=== PATIENT | male | born 1990 | race Caucasian/White ===

== ENCOUNTER 2017-04-13 16:54 | Emergency (ER) | payer OTHER ==
[~2017-04-13 16:54] MED LIST: QUET25TA73 PO; RISP2TAB21 PO
[2017-04-13] MEDS ORDERED: Haloperidol 5 mg/mL Inj ONE ×2 (17:12→17:14)
--- NOTE | 2017-04-13 17:20 | ED.REPORT ---
HPI-General Illness Date of Service Apr 13, 2017 ED Provider: Kayla Toledo MD The pt is a 27 y/o male w/ a hx of psychiatric hospitalizations and polysubstance abuse presenting to the ED via police due to dangerous behavior. They report him threatening his roommate w/ a saw, jumping on cars, and yelling that he was Sukumar. The pt also admits taking his psych meds w/ marijuana. Police also report the pt yelling about taking meth. Nursing Notes Stated Complaint: MENTAL HEALTH EVALUATION Chief Complaint: Mental Health Evaluation Nursing Notes Reviewed: Yes Allergies: Coded Allergies: doxylamine succinate (Verified Allergy, Mild, Hives, 02/01/16) Scheduled Quetiapine Fumarate (Quetiapine Fumarate) 25 Mg Tablet 100 MG PO HS Risperidone (Risperdal) 2 Mg Tablet 2 MG PO HS General Time Seen by MD: 17:11 Chief Complaint Altered mental status Hx Obtained From: Police Unable to Obtain Hx: Mental status Arrived By: Police Sudden in Onset?: Yes Onset Occurred: Just prior to arrival Context of Onset: Medication reaction Symptom Duration: Since onset Recent Healthcare: Recent doctor visit, Recent hospitalization Similar Sx Previous: Yes Past Medical History Past Medical History Depression Psychosis PAST PSYCHIATRIC HISTORY: He has multiple psychiatric hospitalizations, including on April 16, 2012; April 07, 2012; June 08, 2011; February 15, 2013, for similar presentations of suicidality, depression, and psychosis. He has been followed by Dr. Ray Bonilla in [place]. SUBSTANCE ABUSE HISTORY: He has extensive polysubstance abuse. He has abused benzodiazepines. He has sniffed volatile substances such as glue, paint thinner, and gaseous substances. He has not had significant problems with alcohol, stimulants, or opioids. He has been smoking cannabis consistently. He has been in drug rehab in the past, and he lived at the [facility] in January 2013. Currently at [facility]. Past Surgical History Denies Family History Mother has had depression and anxiety, and reportedly has made suicide attempts in the past. Smoking History Current Every Day Smoker Social History Alcohol Use: Denies alcohol use Drug Use: Meth, THC Other Social History: Poor social support, Local resident Ambulatory Status Independent Review of Systems Unable to Obtain ROS Mental status Physical Exam General: Diaphoretic, agitated young male, laying on ground. HEENT: mucous membranes moist Pulm: Speaking comfortably with unlabored respirations, no respiratory distress Card: Tachycardic, regular rate, good peripheral perfusion Abd: Soft, nontender, nondistended Skin: Warm and moist, no rashes or pallor appreciated Neuro: AOx3, normal muscle tone. Extremities: Moving all extremities, no peripheral edema appreciated Psychiatric: Agitated, yelling. Not expressing suicidal or homicidal ideations however does appear to be acutely psychotics. Rapid pressured speech. Vital Signs Vital Signs Date Time Temp Pulse Resp B/P Pulse Ox O2 Delivery O2 Flow Rate FiO2 04/13/17 17:52 37.2 119 18 106/52 98 Room Air Initial VS: Reviewed Interpretation & Diagnostics Lab Results Interpretation Result Diagram: 04/13/17 1805 04/13/17 1805 Test 04/13/17 18:05 04/13/17 21:45 White Blood Count 6.7th/mm3 (3.8-10.1) Red Blood Count 5.05mil/mm3 (4.40-5.80) Hemoglobin 15.4g/dL (13.8-17.2) Hematocrit 42.7% (41.0-50.0) Mean Corpuscular Volume 84.6fL (81-100) Mean Corpuscular Hemoglobin 30.5pg (27.0-35.0) Mean Corpuscular Hemoglobin Concent 36.1% (32.0-37.0) Red Cell Distribution Width 12.7% (12.3-15.4) Platelet Count 290bil/L (150-400) Neutrophils (%) (Auto) 69.3% (40-74) Lymphocytes (%) (Auto) 15.2% (14-46) Monocytes (%) (Auto) 14.6% (4-12) Eosinophils (%) (Auto) 0.7% (0-5) Basophils (%) (Auto) 0.1% (0-3) Sodium Level 136mEq/L (134-144) Potassium Level 3.7mEq/L (3.5-5.2) Chloride Level 97mEq/L (97-108) Carbon Dioxide Level 15mmol/L (18-29) Blood Urea Nitrogen 11mg/dL (6-20) Creatinine 1.02mg/dL (0.76-1.27) Estimat Glomerular Filtration Rate 95mL/min (>59) Glucose Level 104mg/dL (60-99) Calcium Level 10.0mg/dL (8.5-10.1) Total Bilirubin 0.8mg/dL (0.0-1.2) Aspartate Amino Transf (AST/SGOT) 60U/L (0-50) Alanine Aminotransferase (ALT/SGPT) 36U/L (0-44) Alkaline Phosphatase 73U/L (25-150) Total Protein 7.7g/dL (6.4-8.4) Albumin 4.8g/dL (3.4-5.0) Thyroid Stimulating Hormone (TSH) 1.230uIU/mL (0.450-4.500) Hold Urine Received (Received) Re-Eval/Medical Decision Med Decision/Clinical Course In summary, 27-year-old male with an extensive psychiatric history presenting to the ED for evaluation of agitation and aggressive behavior. He does have a known history of methamphetamine abuse, however urine drug screen here negative for this. Due to his extreme agitation and concern that he was a risk to himself and the staff, he was given Haldol, Ativan, and Benadryl with improvement in symptoms. Labs notable for a mildly elevated anion gap; unclear etiology. VBG and CK pending. Patient was signed out to Dr. Michelle with reevaluation once sober pending. Counseled Regarding: Diagnosis, Lab results, Need for follow-up, When/why to return to ED Discharge & Departure Primary Impression: Unspecified psychosis Disposition: Home Discharge Condition All VS Reviewed: Yes Condition: Stable Referrals: [facility] Care Transferred to: Dr. Michelle Care Transferred at: 00:00 [employer] Attestation Portions of this note were transcribed by Bernard Graham. I, Dr. Garza personally performed the history, physical exam and medical decision- making; I reviewed and confirmed the accuracy of the information in the transcribed note. Signed by: Theresa Ortega, 04/13/17 and [id number]. copies to: [facility] Rell Garza MD Apr 13, 2017 17:20 Bernard Graham Apr 13, 2017 18:08 copies to: [facility] Rell Garza MD Apr 13, 2017 17:20 Bernard Graham Apr 13, 2017 18:08
[2017-04-13 17:52] VITALS: BP 106/52; PULSE 119; RESP 18; O2SAT 98
[2017-04-13 18:34] LABS: BASOPHILS % (AUTO) 0.1 % (0-3); EOSINOPHILS % (AUTO) 0.7 % (0-5); MONOCYTES % (AUTO) 14.6 % (4-12); Mean Corpuscular Hemoglobin 30.5 pg (27.0-35.0); Mean Corpuscular Volume 84.6 fL (81-100); NEUTROPHILS % (AUTO) 69.3 % (40-74); Platelet Count 290 bil/L (150-400)
[2017-04-14 06:17] VITALS: BP 126/82; PULSE 113; RESP 16; O2SAT 98
[2017-04-14 11:18] VITALS: BP 135/87; PULSE 85; RESP 16; O2SAT 98
== END 2017-04-14 11:19 | disposition home or self-care (01) ==
LOC: SED 16:54
DX: F29 Unspecified psychosis not due to a substance or known physiological condition (principal); F25.0 Schizoaffective disorder, bipolar type; F32.9 Major depressive disorder, single episode, unspecified; F17.200 Nicotine dependence, unspecified, uncomplicated; Z88.8 Allergy status to other drugs, medicaments and biological substances
CPT/HCPCS: 36415; 80053; 81002; 82075; 84443; 85025; 96372; 99285; J1200; J1630; J2060

== ENCOUNTER 2017-04-25 11:22 | Emergency (ER) | payer OTHER ==
[~2017-04-25] VITALS: Ht 185.4 cm; Wt 90.9 kg
[2017-04-25 11:29] VITALS: BP 129/93; PULSE 99; RESP 12; O2SAT 98
[2017-04-25] MEDS ORDERED: HAL5 PO (11:45)
[2017-04-25] MEDS ORDERED: HALO5AMP2 IJ (11:45)
--- NOTE | 2017-04-25 13:24 | ED.REPORT ---
HPI-Psychiatric Illness Date of Service Apr 25, 2017 ED Provider: Joey Patterson MD Patient is a 27 year old male with a hx of Schizoaffective disorder and substance abuse who presents to the ED for paranoia s/p methamphetamine use. He last used 2 days ago. He states "I felt paranoia and bad vibes in the air." He endorses wanting to go to Detox. He denies suicidal ideation, homicidal ideation, or any other symptoms. He has not been taking his Haldol (5mg) or Seroquel. He was seen 12 days ago for psychosis. Nursing Notes Stated Complaint: SUBSTANCE ABUSE Chief Complaint: Psychiatric Complaint Nursing Notes Reviewed: Yes Allergies: Coded Allergies: doxylamine succinate (Verified Allergy, Mild, Hives, 02/01/16) Scheduled Haloperidol (Haloperidol) 5 Mg Tablet 5 MG PO prn Quetiapine Fumarate (Quetiapine Fumarate) 25 Mg Tablet 100 MG PO HS General Time Seen by MD: 11:40 Chief Complaint Paranoid Hx Obtained From: Patient Arrived By: Walk-in Onset Occurred: Onset unknown Context of Onset: Illicit drug use Symptom Duration: Since onset Immunizations: Unknown Similar Sx Previous: Yes Risk-Psychiatric Illness Suicide Risk Stratification Suicide Risk Factors - Adult: : Previous attempt: Prior psych admission: Substance abuse RF Statements: Risk factors reviewed Past Medical History Past Medical History Schizoaffective Depression Psychosis PAST PSYCHIATRIC HISTORY: He has multiple psychiatric hospitalizations, including on April 16, 2012; April 07, 2012; June 08, 2011; February 15, 2013, for presentations of suicidality, depression, and psychosis. He has been followed by Dr. Ray Bonilla in [place]. SUBSTANCE ABUSE HISTORY: He has extensive polysubstance abuse. He has abused benzodiazepines. He has sniffed volatile substances such as glue, paint thinner, and gaseous substances. He has not had significant problems with alcohol, stimulants, or opioids. He has been smoking cannabis consistently. He has been in drug rehab in the past, and he lived at the [facility] in January 2013. Past Surgical History Denies Family History Mother has had depression and anxiety, and reportedly has made suicide attempts in the past. Smoking History Current Every Day Smoker Social History Alcohol Use: Denies alcohol use Drug Use: Meth, THC Other Social History: Smokeless tobacco, Poor social support, Local resident Ambulatory Status Independent Review of Systems +paranoia Psychiatric: Denies: Homicidal ideation, Suicidal ideation Complete sys rev & neg: except as marked. Physical Exam Initial Vital Signs Vital Signs (First) Date Time Temp Pulse Resp B/P Pulse Ox O2 Delivery O2 Flow Rate FiO2 04/25/17 11:29 36.8 99 12 129/93 98 Room Air Initial VS: Reviewed Head / Eyes: Atraumatic, Normocephalic Neck: Full range of motion Respiratory: No respiratory distress Skin: Warm, Dry General/Constitutional: Awake, Alert, No acute distress Neurologic: Oriented X3, Speech NL Psychiatric: Not suicidal Paranoid fearful Upper Extremity / MS: Atraumatic Lower Extremity / Pelvis / MS: Atraumatic Interpretation & Diagnostics Lab Results Interpretation Test 04/25/17 13:14 Hold Urine Received (Received) Lab Results Interpretation: urine tox posive for THC, methamphetamines, and amphetamines. Re-Eval/Medical Decision Re-Evaluation/Progress : Time of Eval: 15:01 Re-Evaluation/Progress Note: Pt signed out to Dr. Rell Garza at change of shift. Counseled Regarding: Diagnosis, Lab results Discharge & Departure Shift Change Sign-Out Patient Care Transferred: Yes Discussed Complaint(s): Yes Input from Consult: Pt signed out to Dr. Rell Garza at change of shift. Pending social services director evaluation. Discharge Condition All VS Reviewed: Yes Condition: Stable Referrals: South Willson MD (PCP) Care Transferred to: Pt signed out to Dr. Rell Garza at change of shift. Care Transferred at: 15:01 Scribe Attestation Portions of this note were transcribed by Lin Moss. I, Dr. Patterson personally performed the history, physical exam and medical decision-making; I reviewed and confirmed the accuracy of the information in the transcribed note. Signed by: Lin Moss 04/25/2017, 1444 copies to: [place] Willson MD, Kirk H MD Apr 25, 2017 13:24 LIN MOSS Apr 25, 2017 13:51 Kamille Suarez Apr 25, 2017 15:02
[2017-04-25 14:41] VITALS: BP 116/72; PULSE 84; RESP 16; O2SAT 97
[2017-04-25 16:49] VITALS: BP 118/75; PULSE 76; RESP 16; O2SAT 98
== END 2017-04-25 16:49 | disposition home or self-care (01) ==
LOC: SED 11:22
DX: F22 Delusional disorders (principal); F15.10 Other stimulant abuse, uncomplicated; F32.9 Major depressive disorder, single episode, unspecified; F17.200 Nicotine dependence, unspecified, uncomplicated